=== PATIENT | female | born 1985 | race Caucasian/White ===

== ENCOUNTER 2017-12-07 10:10 | Inpatient (IN) | payer MEDICAID ==
--- NOTE | 2017-12-02 14:06 | MH ---
cc: Day Caldera MD DATE OF ADMISSION: 12/07/2017 REASON FOR ADMISSION: Repeat section and tubal ligation. HISTORY OF PRESENT CONDITION: The patient is a 31-year-old white female, 4, para 2-0-1-2, with LMP 03/02/2017 and EDC 12/12/2017 by 11-week ultrasound, currently at 38 and 4. She is scheduled for her third section with tubal ligation on 12/07/2017. Her first section was for breech and oligohydramnios and then the second was elective repeat that showed a very thin lower uterine segment. This has been unremarkable with no labor, gestational diabetes or hypertension. Fluid levels have been evaluated in the third trimester and have been reassuring. She has not yet begun any labor. She does not smoke, drink or use illicit drugs. While her drug screen at the beginning of this had shown some opiates, it was felt that it was her pension for poppy seed bagels and it was still positive at 28 weeks when she was continuing these bagels. She is negative for everything else. Her general health is good. She has no chronic or systemic illnesses. She does not smoke, drink or use illicit drugs. Her blood type is A positive. Her hemoglobin was 12.6. She is immune to [place] measles and chickenpox. She has negative serology. Thyroid test is normal, sugar test was normal and did not have a group B strep. PHYSICAL EXAMINATION: VITAL SIGNS: She weighs 163. Her blood pressure is 110/70. She had trace protein today. NECK: She had no thyromegaly. LUNGS: Clear to auscultation. HEART: Rate and rhythm are regular without murmur, heave or thrills. ABDOMEN: Fundus is term. Infant is head first. PELVIC: Cervix is long, closed and thick. EXTREMITIES: Show 1+ edema. IMPRESSION: Multiparous, for her third section with tubal ligation, history of oligohydramnios with her first baby and breech position. PLAN: To proceed on Thursday at noon. Risks, benefits, expectations, and alternatives have been described in detail. She signed consents and is scheduled for that time. MD FARA Sarmiento/KD , 01:46 PM , 02:05 PM
[2017-12-07] VITALS (11 sets, daily range): BP systolic 92–112; BP diastolic 50–67; PULSE 62–89; RESP 17–20; TEMP 97.6–98.1; O2SAT 97–100
[~2017-12-07] VITALS: Ht 160 cm; Wt 73.0 kg
[~2017-12-07 10:10] MED LIST: ALPR.25; IBUP800 PO; OXYC-360 PO; PREN0.01 PO
[2017-12-07 11:13] LABS: AUTOMATED NEUTROPHIL # 5.7 TH/MM3 (1.8-7.7); BASOPHIL % 0.5 % (0.0-2.0); EOSINOPHIL # 0.1 TH/MM3 (0-0.4); EOSINOPHIL % 0.6 % (0.0-4.0); HEMATOCRIT 31.7 % (35.0-46.0); HEMOGLOBIN 10.8 GM/DL (11.6-15.3); LYMPH % 24.1 % (9.0-44.0); LYMPHOCYTE # 2.1 TH/MM3 (1.0-4.8); MEAN CELL VOLUME 81.9 FL (80.0-100.0); MEAN CORPUSCULAR HGB CONC 34.2 % (32.0-36.0); MEAN PLATELET VOLUME 8.5 FL (7.0-11.0); MONO % 7.6 % (0.0-8.0); MONOCYTE # 0.6 TH/MM3 (0-0.9); NEUT % 67.2 % (16.0-70.0); PLATELET COUNT 212 TH/MM3 (150-450); RED BLOOD COUNT 3.87 MIL/MM3 (4.00-5.30); WHITE BLOOD COUNT 8.5 TH/MM3 (4.0-11.0)
[2017-12-07] MEDS ORDERED: CITRIC ACID-SODIUM CITRATE LIQ 30 ML UDC PO SCH (11:15)
[2017-12-07] MEDS ORDERED: ceFAZolin 2 GM PREMIX 50 ML IV SCH (11:15)
[2017-12-07] MEDS ORDERED: LACTATED RINGER'S 1000 ML IV ONE (11:15)
[2017-12-07 11:27] LABS: BACTERIA, URINE FEW /hpf; BILIRUBIN, URINE NEG (NEG); BLOOD, URINE NEG (NEG); GLUCOSE,URINE NEG (NEG); KETONE, URINE NEG (NEG); MUCUS URINE FEW /lpf (OCC); NITRITE,URINE NEG (NEG); SQUAMOUS EPITHELIAL CELL URINE 16 /hpf (0-5); URINE COLOR YELLOW (YELLW/STRAW); URINE LEUKOCYTE ESTERASE LARGE (NEG)
[2017-12-07] MEDS: LACTATED RINGER'S 1000 ML IV SCH (11:56)
[2017-12-07] MEDS ORDERED: OXYTOCIN 10 UNIT/ML AMP IV ONE (12:00)
[2017-12-07] MEDS ORDERED: ONDANSETRON HCL 4 MG/2 ML VIAL IV ONE (12:00)
[2017-12-07] MEDS ORDERED: ePHEDrine/NS 25 MG/5 ML SYRINGE IV ONE (12:00)
[2017-12-07] MEDS ORDERED: DEXAMETHASONE SOD PHOS 4 MG/ML VIAL IV ONE (12:00)
[2017-12-07] MEDS ORDERED: MORPHINE SULFATE PF 5 MG/10 ML VIAL ONE (12:02)
--- NOTE | 2017-12-07 13:14 | HHI.DCPOC ---
Discharge Care Plan Report Symptoms to Your Doctor -Temperature above 100.5 degrees -Redness, of incision or excessive or foul smelling drainage -Unusual pain or calf pain -Increased vaginal bleeding -Painful or difficulty urinating -Feelings of extreme sadness or anxiety after 2 weeks Goals to Promote Your Health * To prevent worsening of your condition and complications * To maintain your health at the optimal level Directions to Meet Your Goals Take your medications as prescribed Follow your dietary instruction Follow activity as directed Ensure plenty of rest for recovery Drink fluids for hydration Keep your appointments as scheduled Take your immunizations and boosters as scheduled If your symptoms worsen call your PCP, if no PCP go to Urgent Care Center or Emergency Room Smoking is Dangerous to Your Health. Avoid second hand smoke Call the 24-hour crisis hotline for domestic abuse at Day Caldera MD Dec 07, 2017 13:14
[2017-12-07] MEDS ORDERED: SODIUM CHLORIDE 0.9% FLUSH 10 ML FLUSH IV FLUSH PRN (13:15)
[2017-12-07] MEDS ORDERED: ZOLPIDEM TARTRATE 5 MG TAB PO PRN (13:15)
[2017-12-07] MEDS ORDERED: ONDANSETRON HCL 4 MG/2 ML VIAL IV PUSH PRN (13:15)
[2017-12-07] MEDS ORDERED: oxyCODONE/ACETAMINOPHEN 5 MG/325 MG TAB PO PRN (13:15)
[2017-12-07] MEDS ORDERED: SIMETHICONE 80 MG CHEWABLE TAB PO PRN (13:15)
[2017-12-07] MEDS ORDERED: OXYTOCIN 30 UNITS-500ML PREMIX 500 ML IV ONE (13:15)
[2017-12-07] MEDS ORDERED: ACETAMINOPHEN 1000 MG/100 ML 100 ML IV ONE (14:00)
--- NOTE | 2017-12-07 14:27 | MP ---
cc: Day Caldera MD DATE OF OPERATION: 12/07/2017 PREOPERATIVE DIAGNOSES: 1. Term intrauterine . 2. Prior section x 2, desire for sterility. POSTOPERATIVE DIAGNOSES: 1. Term intrauterine . 2. Prior section x 2, desire for sterility. PROCEDURE PERFORMED: Repeat low transverse segment section and bilateral tubal fimbriectomy. ANESTHESIA: Spinal with Duramorph. SURGEON: Day Caldera MD STRUCTURAL ARCHITECT: Kaya Rodríguez ESTIMATED BLOOD LOSS: A living female from [place] with a deep flexed head was delivered weighing 7 pounds 10 ounces and Her Apgars were 7 at 1 and 9 at 5. She had a posterior placenta. There was a thin lower uterine segment and the bladder was scarred up to the incision. had a lusty cry on the abdomen and the cord was clamped x 2, cut and she was handed to the neonatology team attending. Cord blood was obtained. The placenta will be sent to the [facility] for donation. Sponge, instrument and needle count were correct. Estimated blood loss was 250 mL/ DESCRIPTION OF OPERATION: The patient was taken to the back and administered spinal epidural with Duramorph. A timeout was performed to document procedure, person, date of and allergies. After assuring them, she was prepped and draped in the usual sterile fashion. She had a Culp catheter in place, sequential's on and she was given 2 grams of Ancef. After assuring adequate analgesia, a Pfannenstiel incision was made with a knife and carried down through to the rectus fascia. The rectus fascia was then incised with the Bovie on cutting and then the parietal peritoneum was entered sharply through the incision to avoid the bladder, which was very high. Careful dissection was performed to cut a space in the lower uterine segment if it was not going to compromise the bladder. A very thin lower uterine segment was carefully entered and clear fluid obtained. The incision was extended bluntly with some additional cutting of the fascia. It was necessary to use the vacuum to flex the head. The baby was delivered with Apgars as noted and the cord was clamped x 2 and cut after 45 seconds delay and she was handed over to the neonatology team in attendance. The placenta was delivered manually intact with a 3-vessel cord. The uterus was exteriorized, cleaned with a lap sponge and closed with chromic in a running interlocking fashion with a second layer taking the peritoneum and closing it to avoid adhesions. Then, the right tube was elevated and resected. The distal half was tied off x 3 and removed. The left tube was elevated and the distal half was tied off x 3 and removed and the uterus was carefully placed within the abdominal cavity to avoid knocking the knots off the fimbriectomy and then irrigation was performed. The rectus muscles were then approximated with a running stitch. The fascia was closed with #1 Vicryl in a running stitch. Subcutaneous layer was closed in several layers and prior to entering into the abdominal cavity her previous incision had been excised. The 2 layers of subcutaneous tissue were then approximated and then the skin was closed with 4-0 Vicryl on a Tito needle. Estimated blood loss was less than average. Sponge, instrument and needle count correct. Mom and baby tolerated the procedure well and both went to the recovery room stable. Day Caldera MD PPC/DL , 01:02 PM , 01:33 PM CARRIE
[2017-12-07] MEDS ORDERED: EPIDURAL-DIPHENHYDRAMINE HCL 50 MG/ML VIAL IV PUSH PRN (15:00)
[2017-12-07] MEDS ORDERED: EPIDURAL-NALOXONE HCL 0.4 MG/ML AMP IV PUSH PRN (15:00)
[2017-12-07] MEDS ORDERED: EPIDURAL-DIPHENHYDRAMINE HCL 50 MG CAP PO PRN (15:00)
[2017-12-07] MEDS ORDERED: EPIDURAL-NO SYSTEMIC NARCOTICS PRN (15:00)
[2017-12-07] MEDS ORDERED: EPIDURAL-DO NOT ADMINISTER ANTICOAGULANTS PRN (15:00)
[2017-12-07] MEDS ORDERED: LACTATED RINGER'S 1000 ML INJ 1,000 ML IV SCH (18:12)
[2017-12-07] MEDS ORDERED: OXYTOCIN 30 UNITS-500ML PREMIX 500 ML IV PRN (18:15)
[2017-12-07] MEDS ORDERED: SODIUM CHLORIDE 0.9% FLUSH 10 ML FLUSH IV FLUSH SCH (21:00)
[2017-12-08] VITALS (7 sets, daily range): BP systolic 90–123; BP diastolic 61–75; PULSE 67–98; RESP 18–20; TEMP 98.1–99.3; O2SAT 97–98
[2017-12-08] MEDS: IBUPROFEN 600 MG TAB PO PRN ×4 (02:08→22:26)
[2017-12-08] MEDS: DOCUSATE SODIUM 50 MG/SENNA 8.6 MG TAB PO PRN ×2 (02:08→16:30)
[2017-12-08 05:56] LABS: AUTOMATED NEUTROPHIL # 12.5 TH/MM3 (1.8-7.7); BASOPHIL % 0.1 % (0.0-2.0); EOSINOPHIL % 0.1 % (0.0-4.0); HEMATOCRIT 30.3 % (35.0-46.0); HEMOGLOBIN 10.1 GM/DL (11.6-15.3); LYMPH % 13.2 % (9.0-44.0); MEAN CELL VOLUME 83.3 FL (80.0-100.0); MEAN CORPUSCULAR HEMOGLOBIN 27.8 PG (27.0-34.0); MEAN CORPUSCULAR HGB CONC 33.4 % (32.0-36.0); MONO % 6.3 % (0.0-8.0); NEUT % 80.3 % (16.0-70.0); PLATELET COUNT 217 TH/MM3 (150-450); RED BLOOD COUNT 3.64 MIL/MM3 (4.00-5.30); RED CELL DISTRIBUTION WIDTH 13.9 % (11.6-17.2); WHITE BLOOD COUNT 15.6 TH/MM3 (4.0-11.0)
--- NOTE | 2017-12-08 08:41 | HHI.OB ---
Subjective Post Day: 1 Remarks s/p repeat CD and BTL Objective Vitals/I&O Vital Signs Date Time Temp Pulse Resp B/P (MAP) Pulse Ox O2 Delivery O2 Flow Rate FiO2 12/08/17 08:00 98.3 98 20 104/61 (75) 98 12/08/17 04:00 98.1 67 18 90/65 (73) 97 12/07/17 23:40 98.1 62 18 96/59 (71) 98 12/07/17 20:00 71 92/59 (70) 12/07/17 20:00 98.1 18 97 12/07/17 18:08 18 12/07/17 17:20 18 12/07/17 15:50 18 12/07/17 14:20 62 20 103/63 (76) 100 12/07/17 14:05 69 20 101/50 (67) 100 12/07/17 13:50 68 17 99/58 (72) 12/07/17 13:50 99 12/07/17 13:35 84 20 106/67 (80) 99 12/07/17 13:20 97.6 12/07/17 13:20 112/65 (81) 12/07/17 13:20 89 18 99 12/07/17 10:45 98.1 Objective Remarks GENERAL: Well-nourished, well-developed patient. CARDIOVASCULAR: Regular rate and rhythm without murmurs, gallops, or rubs. RESPIRATORY: Breath sounds equal bilaterally. No accessory muscle use. ABDOMEN/GI: Abdomen soft, non-tender. Fundus: Firm, non-tender at umbilicus. Bandage in place. GENITOURINARY: Light to moderate bleeding. EXTREMITIES: No cyanosis or edema, non-tender, without signs of DVT. Medications and IVs Current Medications Medications (Trade) Dose Ordered Sig/Rusty Route Start Time Stop Time Status Last Admin Lactated Ringer's 1,000 ml @ 150 mls/hr Q6H40M IV 12/07/17 11:15 12/07/17 11:56 (Bicitra Liq) 30 ml JEWEL HOLE ROUGH OPENER PO 12/07/17 11:15 12/10/17 11:14 12/07/17 11:55 Cefazolin Sodium/ Dextrose 50 ml @ 100 mls/hr JEWEL HOLE ROUGH OPENER IV 12/07/17 11:15 12/10/17 11:14 12/07/17 11:55 Lactated Ringer's 1,000 ml @ 100 mls/hr Q10H IV 12/07/17 18:12 12/08/17 14:11 Oxytocin 500 ml @ 100 mls/hr UNSCH X1 PRN IV 12/07/17 18:15 12/08/17 18:14 (NS Flush) 2 ml BID IV FLUSH 12/07/17 21:00 (NS Flush) 2 ml UNSCH PRN IV FLUSH 12/07/17 13:15 (Mylicon Chew) 80 mg QID PRN PO 12/07/17 13:15 (Motrin) 600 mg Q6H PRN PO 12/07/17 13:15 12/08/17 02:08 (Percocet 5-325 Mg) 1 tab Q4H PRN PO 12/07/17 13:15 (Percocet 5-325 Mg) 2 tab Q4H PRN PO 12/07/17 13:15 (Kely-Colace) 2 tab Q12H PRN PO 12/07/17 13:15 12/08/17 02:08 (Ambien) 5 mg HS PRN PO 12/07/17 13:15 (M-M-R Ii Inj) 0.5 ml ONCE ONCE SQ 12/08/17 16:00 12/08/17 16:01 (Boostrix Inj) 0.5 ml ONCE ONCE IM 12/08/17 16:00 12/08/17 16:01 (Zofran Inj) 4 mg Q6H PRN IV PUSH 12/07/17 13:15 ([facility] Nursing Information) NO SYSTEMIC NARCOTICS TO BE GIVEN FO... UNSCH PRN .XX 12/07/17 15:00 12/08/17 14:59 (Narcan Inj) 0.4 mg UNSCH PRN IV PUSH 12/07/17 15:00 12/08/17 14:59 (Benadryl Inj) 25 mg Q6H PRN IV PUSH 12/07/17 15:00 12/08/17 14:59 (Benadryl) 50 mg Q6H PRN PO 12/07/17 15:00 12/08/17 14:59 ([facility] Nursing Information) ALL NURSING DEPARTMENTS UNSCH PRN .XX 12/07/17 15:00 12/08/17 14:59 Assessment/Plan Problem List: (1) S/P repeat low transverse ICD Codes: Z98.891 - History of uterine scar from previous surgery Status: Acute (2) Status post tubal ligation at time of delivery, current hosp ICD Codes: O80 - Encounter for full-term uncomplicated delivery; Z30.2 - Encounter for sterilization Status: Acute Assessment and Plan PPD/POD#1 routine supportive care, encourage ambulation ,shower today, remove bandage; anticipate d/c in 1-2 days Discharge Planning routine for POD#2-3 Mayra Cardenas MD Dec 08, 2017 08:41
[2017-12-08] MEDS ORDERED: DIPHTH/TETANUS/ACEL PERTUSSIS (BOOSTER) 0.5 ML VIAL/PFS IM ONE (16:00)
[2017-12-08] MEDS ORDERED: MEASLES, MUMPS, RUBELLA VACCINE 0.5 ML VIAL SQ ONE (16:00)
[2017-12-08] MEDS: oxyCODONE/ACETAMINOPHEN 5 MG/325 MG TAB PO PRN (22:26)
[2017-12-09] MEDS: oxyCODONE/ACETAMINOPHEN 5 MG/325 MG TAB PO PRN ×2 (03:54→08:45)
[2017-12-09] MEDS: IBUPROFEN 600 MG TAB PO PRN (08:45)
[2017-12-09] MEDS: DOCUSATE SODIUM 50 MG/SENNA 8.6 MG TAB PO PRN (08:46)
--- NOTE | 2017-12-09 09:19 | HHI.OB ---
Subjective Post Operative Day: 2 Remarks POD#2; Stable, no significant c/o, desires D/C home Objective Vitals/I&O Vital Signs Date Time Temp Pulse Resp B/P (MAP) Pulse Ox O2 Delivery O2 Flow Rate FiO2 12/08/17 23:37 98.7 12/08/17 22:31 99.3 90 18 97/63 (74) 12/08/17 20:25 99.0 12/08/17 16:30 98.1 84 18 118/67 (84) 12/08/17 11:40 98.2 89 20 123/75 (91) 97 Result Diagram: 12/08/17 0450 Objective Remarks GENERAL: Well-nourished, well-developed patient. CARDIOVASCULAR: Regular rate and rhythm without murmurs, gallops, or rubs. RESPIRATORY: Breath sounds equal bilaterally. No accessory muscle use. ABDOMEN/GI: Abdomen soft, non-tender, bowel sounds present. Incision: Clean, dry and intact. Fundus: Firm, non-tender at umbilicus. GENITOURINARY: Light to moderate bleeding. EXTREMITIES: No cyanosis or edema, non-tender, without signs of DVT. Medications and IVs Current Medications Medications (Trade) Dose Ordered Sig/Rusty Route Start Time Stop Time Status Last Admin Lactated Ringer's 1,000 ml @ 150 mls/hr Q6H40M IV 12/07/17 11:15 12/07/17 11:56 (Bicitra Liq) 30 ml DEMURRAGE CLERK PO 12/07/17 11:15 12/10/17 11:14 12/07/17 11:55 Cefazolin Sodium/ Dextrose 50 ml @ 100 mls/hr DEMURRAGE CLERK IV 12/07/17 11:15 12/10/17 11:14 12/07/17 11:55 (NS Flush) 2 ml BID IV FLUSH 12/07/17 21:00 (NS Flush) 2 ml UNSCH PRN IV FLUSH 12/07/17 13:15 (Mylicon Chew) 80 mg QID PRN PO 12/07/17 13:15 (Motrin) 600 mg Q6H PRN PO 12/07/17 13:15 12/09/17 08:45 (Percocet 5-325 Mg) 1 tab Q4H PRN PO 12/07/17 13:15 12/09/17 08:45 (Percocet 5-325 Mg) 2 tab Q4H PRN PO 12/07/17 13:15 (Kely-Colace) 2 tab Q12H PRN PO 12/07/17 13:15 12/09/17 08:46 (Ambien) 5 mg HS PRN PO 12/07/17 13:15 (Zofran Inj) 4 mg Q6H PRN IV PUSH 12/07/17 13:15 Assessment/Plan Problem List: (1) S/P repeat low transverse ICD Codes: Z98.891 - History of uterine scar from previous surgery Status: Acute (2) Status post tubal ligation at time of delivery, current hosp ICD Codes: O80 - Encounter for full-term uncomplicated delivery; Z30.2 - Encounter for sterilization Status: Acute Assessment and Plan PPD/POD#2 routine supportive care, doing well ,plan discharge for today Discharge Planning routine today Noe Vallejo MD Dec 09, 2017 09:19
[2017-12-09] MEDS ORDERED: IBUP-232 PO (09:23)
[2017-12-09] MEDS ORDERED: OXYC1TAB63 PO (09:23)
[2017-12-09] MEDS: LACTATED RINGER'S 1000 ML IV SCH (09:55)
== END 2017-12-09 13:52 | disposition home or self-care (01) | DRG 766 ==
LOC: H2EB 10:10 → H1EA 15:00
PROVIDERS: ADMIT Obstetrics & Gynecology; ATTEND Obstetrics & Gynecology
PROC: 10D00Z1 Extraction of Products of Conception, Low, Open Approach (ICD-10-PCS; principal; 2017-12-07)
PROC: 0UB70ZZ Excision of Bilateral Fallopian Tubes, Open Approach (ICD-10-PCS; 2017-12-07)
DX: O34.211 Maternal care for low transverse scar from previous cesarean delivery (principal); Z30.2 Encounter for sterilization; Z37.0 Single live birth; Z3A.38 38 weeks gestation of pregnancy
CPT/HCPCS: 80307; 81001; 85025; 86850; 86900; 86901; 87086; 88302; J0131; J0690; J1100; J2274; J2405; J2590; J7120